=== PATIENT | male | born 1975 | race Caucasian/White ===

== ENCOUNTER → 2016-08-19 | Outpatient (CLI) | payer BC ==
[2016-03-30 00:20] VITALS: BP 160/105
[~2016-08-19] MED LIST: IOHEXOL 300 MG/ML 75 ML VIAL. IV ONE
--- NOTE | 2016-08-20 09:24 | RAD ---
Indication abnormal chest x-ray at the office. History of smoking. Contrast imaging through the chest was performed. Approximately 75 cc of Omnipaque 300 was administered intravenously. No prior imaging is available. Images were reformatted in the coronal and sagittal planes. Imaging through the upper abdomen shows no acute or definite significant finding. There are probably small bilateral renal calculi. The thoracic aorta appears unremarkable. There is no significant hilar or mediastinal adenopathy. There are groundglass opacities in the right upper lobe. There are infiltrates in the right lower lobe. The findings (groundglass opacities and infiltrates) are most compatible with an infectious process. Clinical correlation and follow-up advised. A dominant soft tissue mass in either lung is not seen. IMPRESSION: Findings, as outlined above, involving the right lung probably reflecting infection. A dominant soft tissue mass is not seen. Clinical correlation and follow-up imaging advised. PQRS Compliance Statement: One or more of the following individualized dose reduction techniques were utilized for this examination: 1. Automated exposure control 2. Adjustment of the mA and/or kV according to patient size 3. Use of iterative reconstruction technique
== END | disposition home or self-care (01) ==
LOC: CT 12:47
PROVIDERS: ATTEND Nurse Practitioner Family
DX: J44.9 Chronic obstructive pulmonary disease, unspecified (principal); I10 Essential (primary) hypertension; R93.8 Abnormal findings on diagnostic imaging of other specified body structures; F17.210 Nicotine dependence, cigarettes, uncomplicated
CPT/HCPCS: 71260; Q9967

== ENCOUNTER 2016-12-27 23:48 | Emergency (ER) | payer BC ==
[~2016-12-27] VITALS: Ht 185.4 cm; Wt 109.1 kg
[2016-12-27 23:50] VITALS: BP 148/95
[2016-12-28] MEDS ORDERED: IV NORMAL SALINE 1,000ML 1,000 ML IV SCH (00:08)
[2016-12-28] MEDS ORDERED: methylPREDNISolone SOD SUCC PF 125 MG/2 ML VIAL. IV ONE (00:15)
[2016-12-28] MEDS ORDERED: FAMOTIDINE 20 MG/2 ML VIAL IVP ONE (00:15)
[2016-12-28] MEDS ORDERED: diphenhydrAMINE 50 MG/ML VIAL IV ONE (00:15)
[2016-12-28] MEDS ORDERED: SULF1TAB24 PO (00:24)
[2016-12-28] MEDS ORDERED: SMZ/TMP 800/160MG TABLET. PO ONE ×2 (00:27→00:30)
--- NOTE | 2016-12-28 00:27 | PHYS DOC ---
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 Patient states that yesterday he noticed a tender area in his right axilla. Over time tenderness has increased on the redness has spread patient assumed he was bitten by an insect and came for evaluation. 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 He denies fever chills sweats or myalgias he has seen no ticks and his tetanus is up-to-date. No pre-arrival treatment patient is normally healthy. Timing/Duration: 24 hours Severity: mild Modifying Factors: worse with movement Associated Symptoms: rash Allergies: Coded Allergies: No Known Drug Allergies (Unverified , 08/19/16) Past Medical History Medical History: hypertension Surgical History: tonsillectomy Social History Smoker: less than 1 pack/day Alcohol: occasionally Drugs: none Review of Systems Constitutional: denies chills, denies diaphoresis, denies fever Respiratory: denies cough, denies shortness of breath Cardiovascular: denies chest pain, denies palpitations Gastrointestinal: denies nausea, denies vomiting Musculoskeletal: denies back pain, denies joint swelling, denies neck pain Skin: see HPI Psychiatric/Neurological: denies headache, denies numbness, denies paresthesia Physical Exam General Appearance: WD/WN, no apparent distress Eyes: bilateral eye normal inspection, bilateral eye PERRL, bilateral eye EOMI Ear, Nose, Throat: hearing grossly normal, normal ENT inspection Neck: full range of motion, supple Respiratory: normal breath sounds, no respiratory distress Cardiovascular: normal peripheral pulses, regular rate, rhythm Back: no CVA tenderness, no vertebral tenderness Extremities: normal range of motion, normal inspection Neurologic/Psychiatric: no motor/sensory deficits, alert, normal mood/affect, oriented x 3 Skin: warm/dry (4 cm area of induration and erythema the right axilla a 0.5 cm hardened nodule, 3 tiny 0.3 cm satellite lesions inferiorly consistent with MRSA cellulitis. No fluctuance or skin breaks no discharge there is warm and tender) Departure Time of Disposition: 00:25 Disposition: 01 HOME, SELF-CARE Diagnosis: right axillary cellulitis (MRSA) Condition: GOOD Patient Instructions: MRSA Overview Additional Instructions: Stop/cut down smoking to complement wound healing. Warm compresses 4x/daily starting tomorrow. OTC tylenol/ibuprofen as needed. Rx: bactrim ds Follow up with your doctor in 5 days for recheck. Return to ED with new or changing symptoms. MARIIA GORMAN DO Dec 28, 2016 00:27
== END 2016-12-28 00:29 | disposition home or self-care (01) ==
LOC: ER 23:48
DX: L03.111 Cellulitis of right axilla (principal); I10 Essential (primary) hypertension; F17.200 Nicotine dependence, unspecified, uncomplicated; W57.XXXA Bitten or stung by nonvenomous insect and other nonvenomous arthropods, initial encounter; Y93.89 Activity, other specified; Y99.8 Other external cause status; Y92.89 Other specified places as the place of occurrence of the external cause
CPT/HCPCS: 99283

== ENCOUNTER 2018-01-19 17:07 | Emergency (ER) | payer OTHER, BC ==
[~2018-01-19] VITALS: Ht 185.4 cm; Wt 104.3 kg
[~2018-01-19 17:07] MED LIST changes: -IOHEXOL 300 MG/ML 75 ML VIAL. IV ONE; +SULF1TAB24 PO
[2018-01-19] MEDS: methylPREDNISolone SOD SUCC PF 125 MG/2 ML VIAL. IV ONE (17:41)
[2018-01-19] MEDS: diphenhydrAMINE 50 MG/ML VIAL IVP ONE (17:42)
[2018-01-19] MEDS: IV NORMAL SALINE 1,000ML 1,000 ML IV ONE (17:42)
--- NOTE | 2018-01-19 17:43 | PHYS DOC ---
Past History Past Medical History: Hypertension Past Surgical History: Tonsillectomy, Other Alcohol Use: Rarely Drug Use: None Adult General Chief Complaint Chief Complaint: INSECT BITE HPI HPI 42-year-old male presents via EMS after bee sting. The patient knows that she is allergic to bees. He has had reactions that include shortness of breath, throat swelling and rash. His last bee sting was couple of decades ago. He does not carry an EpiPen. The sting was on the left shoulder. This occurred about 15 minutes prior to arrival. The patient is not having any difficulty breathing at this time. He has some mild discomfort at the sting site on his left shoulder. Until his, he was feeling well and had no complaints. He believes he was only stung once. Review of Systems Review of Systems Constitutional: Denies fever or chills [] Eyes: Denies change in visual acuity, redness, or eye pain [] HENT: Denies nasal congestion or sore throat [] Respiratory: Denies cough or shortness of breath [] Cardiovascular: No additional information not addressed in HPI [] GI: Denies abdominal pain, nausea, vomiting, bloody stools or diarrhea [] : Denies dysuria or hematuria [] Musculoskeletal: Denies back pain or joint pain [] Integument: Bee sting[] Neurologic: Denies headache, focal weakness or sensory changes [] Endocrine: Denies polyuria or polydipsia [] All other systems were reviewed and found to be within normal limits, except as documented in this note. Current Medications Current Medications Current Medications Medications (Trade) Dose Ordered Sig/Malathi Start Time Stop Time Status Last Admin Dose Admin Diphenhydramine HCl (Benadryl) 25 mg 1X ONCE 01/19/18 17:30 01/19/18 17:31 UNV Methylprednisolone Sodium Succinate (SOLU-Medrol 125MG VIAL) 125 mg 1X ONCE 01/19/18 17:30 01/19/18 17:31 UNV Sodium Chloride 1,000 ml @ 1,000 mls/hr 1X ONCE 01/19/18 17:30 01/19/18 18:29 UNV Allergies Allergies Allergies Coded Allergies Type Severity Reaction Last Updated Verified No Known Drug Allergies 08/19/16 No Physical Exam Physical Exam Constitutional: Well developed, well nourished, no acute distress, non-toxic appearance. [] HENT: Normocephalic, atraumatic, bilateral external ears normal, oropharynx moist, no oral exudates, nose normal. [] Eyes: PERRLA, EOMI, conjunctiva normal, no discharge. [] Neck: Normal range of motion, no tenderness, supple, no stridor. [] Cardiovascular:Heart rate regular rhythm, no murmur [] Lungs & Thorax: Bilateral breath sounds clear to auscultation [] Abdomen: Bowel sounds normal, soft, no tenderness, no masses, no pulsatile masses. [] Skin: Erythematous area of the left superior shoulder consistent with insect sting. [] Back: No tenderness, no CVA tenderness. [] Extremities: No tenderness, no cyanosis, no clubbing, ROM intact, no edema. [] Neurologic: Alert and oriented X 3, normal motor function, normal sensory function, no focal deficits noted. [] Psychologic: Affect normal, judgement normal, mood normal. [] Current Patient Data Vital Signs Vital Signs Date Time Temp Pulse Resp B/P (MAP) Pulse Ox O2 Delivery O2 Flow Rate FiO2 01/19/18 17:18 98.6 92 18 97 Room Air EKG EKG [] Radiology/Procedures Radiology/Procedures [] Course & Med Decision Making Course & Med Decision Making Pertinent Labs and Imaging studies reviewed. (See chart for details) Patient's labs are remarkable only for a slightly elevated white count of 13.6. The rest are unremarkable. The patient was given 1 L normal saline, 25 mg of Benadryl IV, and 125 mg of Solu-Medrol IV. We will watch him for a period of time to see if further allergic reaction develops. I am signing out this patient to Dr. Radford at 1815 for further observation and final disposition. [Patient remains a symptomatically emergency department. Discharge prescriptions for prednisone and Pepcid and EpiPen is provided. Return cautions reviewed. Patient verbalizes understanding agreement discharge instructions prior to departure.] Dragon Disclaimer Dragon Disclaimer This electronic medical record was generated, in whole or in part, using a voice recognition dictation system. Departure Departure: Impression: Primary Impression: Bee sting allergy Disposition: HOME, SELF-CARE Condition: GOOD Referrals: PCP,NO (PCP) Scripts Epinephrine (EPIPEN 2-ADRIAN) 0.3 Mg/0.3 Ml Auto.injct 0.3 MG IJ 1X PRN PRN for SHORTNESS OF BREATH for 1 Day, #1 SYR 0 Refills Prov: VERÓNICA RADFORD DO 01/19/18 Famotidine (PEPCID) 20 Mg Tablet 1 TAB PO BID, #10 TAB 0 Refills Prov: VERÓNICA RADFORD DO 01/19/18 Prednisone (PREDNISONE) 50 Mg Tablet 1 TAB PO DAILY, #5 TAB Prov: VERÓNICA RADFORD DO 01/19/18 VERÓNICA DAVID DO Jan 19, 2018 17:43 VERÓNICA RADFORD DO Jan 19, 2018 23:25
[2018-01-19 17:47] LABS: BASO # 0.2 x10^3/uL (0.0-0.2); BASO % 1 % (0-3); EOS # 0.1 x10^3/uL (0.0-0.7); EOS % 1 % (0-3); HEMATOCRIT 44.8 % (39.0-53.0); HEMOGLOBIN 15.6 g/dL (13.0-17.5); LYMPH # 2.3 x10^3/uL (1.0-4.8); LYMPH % 17 % (24-48); MEAN CORPUSCULAR HEMOGLOBIN 32 pg (25-35); MEAN CORPUSCULAR HGB CONC 35 g/dL (31-37); MEAN CORPUSCULAR VOLUME 91 fL (79-100); MONO % 7 % (0-9); NEUT % 74 % (31-73); PLATELET COUNT 408 x10^3/uL (140-400); RED BLOOD COUNT 4.94 x10^6/uL (4.30-5.70); RED CELL DISTRIBUTION WIDTH 14.3 % (11.5-14.5); WHITE BLOOD COUNT 13.6 x10^3/uL (4.0-11.0)
[2018-01-19 17:59] LABS: ALBUMIN 3.7 g/dL (3.4-5.0); ALBUMIN/GLOBULIN RATIO 1.1 (1.0-1.7); CALCIUM 9.3 mg/dL (8.5-10.1); GFR 82.3; POTASSIUM 3.7 mmol/L (3.5-5.1); TOTAL BILIRUBIN 0.3 mg/dL (0.2-1.0)
[2018-01-19 18:42] VITALS: BP 143/98
[2018-01-19] MEDS ORDERED: PRED50TA PO (19:09)
[2018-01-19] MEDS ORDERED: FAMO-63 PO (19:09)
[2018-01-19] MEDS ORDERED: EPIN0.3A4 IJ (19:09)
== END 2018-01-19 19:23 | disposition home or self-care (01) ==
LOC: ER 17:07
DX: T63.441A Toxic effect of venom of bees, accidental (unintentional), initial encounter (principal); I10 Essential (primary) hypertension; Y92.89 Other specified places as the place of occurrence of the external cause
CPT/HCPCS: 36415; 80053; 85025; 96374; 96375; 99284; J1200; J2930; J7030

== ENCOUNTER 2018-06-25 16:55 | Emergency (ER) | payer BC, OTHER ==
[~2018-06-25] VITALS: Ht 185.4 cm; Wt 90.7 kg
[~2018-06-25 16:55] MED LIST changes: +EPIN0.3A4 IJ; +FAMO-63 PO; +PRED50TA PO
[2018-06-25] MEDS ORDERED: ASPIRIN 81 MG TAB.CHEW ONE (17:15)
[2018-06-25] MEDS ORDERED: ASPIRIN 81 MG TAB.CHEW PO ONE (17:30)
--- NOTE | 2018-06-25 17:34 | RAD ---
Chest radiograph 06/25/2018 4:09 PM INDICATION: Chest pain with left side arm tingling COMPARISON: CT Chest August 19, 2016 TECHNIQUE: Portable upright frontal view of the chest is provided. FINDINGS: The cardiomediastinal silhouette is within normal limits. There are no pleural effusions. There is no pulmonary vascular congestion. There is no pneumothorax. The lungs are clear. No significant osseous abnormality is identified. IMPRESSION: No acute cardiopulmonary process. Electronically signed by: Tosha Bourgeois MD (06/25/2018 5:31 PM) [facility]
--- NOTE | 2018-06-25 17:37 | PHYS DOC ---
Past History Past Medical History: Asthma, Hypertension Past Surgical History: Other Additional Past Surgical Histo: finger surgery Smoking: Cigarettes Alcohol Use: None Drug Use: None Adult General Chief Complaint Chief Complaint: CHEST PAIN HPI HPI 42-year-old male presenting the emergency department today with intermittent chest pain over the past 3 months. He describes it about 2 times per week. It is a throbbing pain in the chest that is nonradiating. It is worse at night. It is nonradiating. He denies nausea or diaphoresis. Currently he does not have chest pain. He was sent here from clinic. He has not taken anything for his pain. He denies shortness of breath. He denies unilateral leg swelling hemoptysis or history of dvt/pe. Review of systems is negative for fevers chills headache neck stiffness confusion. All other review of systems is negative unless otherwise noted in history of present illness. ED course: 42-year-old male presenting the emergency department today with intermittent chest pain over the past few months. Currently he has no pain. EKG obtained and reviewed by myself shows sinus rhythm with a regular rate. ST segments show mild repolarization in lead V2 and V3. Nonspecific T-wave inversion and flattening in lead 3 and aVF. Otherwise chest x-ray obtained along with blood work. Chest x-ray is unremarkable. Patient was seen just prior to sign out at 6 PM. Plan is to admit the patient to the hospital. I've already had an initial discussion with this patient and he like to sign AGAINST MEDICAL ADVICE. He is willing to wait for the blood test. Patient signed out at 6 PM. HEART SCORE History Slightly suspicious 0 Moderately suspicious +1 Highly suspicious +2 EKG 1 point: No ST depression but LBBB, LVH, repolarization changes (ex: digoxin); 2 points: ST depression/elevation not due to LBBB, LVH, or digoxin Normal 0 Non-specific repolarization disturbance +[address] depression +2 Age <45 0 45-65 +1 65 +2 Risk factors Risk factors: HTN, hypercholesterolemia, DM, obesity (BMI >30 kg/m), smoking (current, or smoking cessation 3 mo), positive family history (parent or sibling with CVD before age 65); atherosclerotic disease: prior MD, PCI/CABG, CVA/TIA, or peripheral arterial disease No known risk factors 0 1-2 risk factors +1 3 risk factors or history of atherosclerotic disease +2 Initial troponin Use local assays and corresponding cutoffs NOT BACK YET Total 4 points Review of Systems Review of Systems SEE ABOVE. Current Medications Current Medications Current Medications Medications (Trade) Dose Ordered Sig/Malathi Start Time Stop Time Status Last Admin Dose Admin Aspirin (Children'S Aspirin) 81 mg STK-MED ONCE 06/25/18 17:15 06/25/18 17:16 DC Allergies Allergies Allergies Coded Allergies Type Severity Reaction Last Updated Verified Penicillins Allergy Unknown 06/25/18 Yes Physical Exam Physical Exam SEE ABOVE Constitutional: Well developed, well nourished, no acute distress, non-toxic appearance. Pt is comfortable. HENT: Normocephalic, atraumatic, bilateral external ears normal, oropharynx moist, no oral exudates, nose normal. [] Eyes: PERRLA, EOMI, conjunctiva normal, no discharge. [] Neck: Normal range of motion, no tenderness, supple, no stridor. [] Cardiovascular:Heart rate regular rhythm, no murmur [] Lungs & Thorax: Bilateral breath sounds clear to auscultation [] Abdomen: Bowel sounds normal, soft, no tenderness, no masses, no pulsatile masses. [] Skin: Warm, dry, no erythema, no rash. no diaphoresis. Back: No tenderness, no CVA tenderness. [] Extremities: No tenderness, no cyanosis, no clubbing, ROM intact, no edema. [] Neurologic: Alert and oriented X 3, normal motor function, normal sensory function, no focal deficits noted. [] Psychologic: Affect normal, judgement normal, mood normal. [] Current Patient Data Vital Signs Vital Signs Date Time Temp Pulse Resp B/P (MAP) Pulse Ox O2 Delivery O2 Flow Rate FiO2 06/25/18 17:09 98.1 73 18 100 Room Air EKG EKG [] Radiology/Procedures Radiology/Procedures [] Course & Med Decision Making Course & Med Decision Making Pertinent Labs and Imaging studies reviewed. (See chart for details) [] Dragon Disclaimer Dragon Disclaimer This electronic medical record was generated, in whole or in part, using a voice recognition dictation system. Departure Departure: Impression: Primary Impression: Chest pain Referrals: PCP,NO (PCP) KENROY SALINAS MD Jun 25, 2018 17:37
[2018-06-25 17:58] LABS: BASO # 0.1 x10^3/uL (0.0-0.2); BASO % 1 % (0-3); EOS # 0.1 x10^3/uL (0.0-0.7); EOS % 1 % (0-3); HEMATOCRIT 46.2 % (39.0-53.0); HEMOGLOBIN 15.7 g/dL (13.0-17.5); LYMPH # 1.9 x10^3/uL (1.0-4.8); LYMPH % 21 % (24-48); MEAN CORPUSCULAR HEMOGLOBIN 31 pg (25-35); MEAN CORPUSCULAR HGB CONC 34 g/dL (31-37); MEAN CORPUSCULAR VOLUME 91 fL (79-100); MONO # 0.5 x10^3/uL (0.0-1.1); MONO % 6 % (0-9); NEUT # 6.2 x10^3uL (1.8-7.7); NEUT % 71 % (31-73); PLATELET COUNT 399 x10^3/uL (140-400); RED BLOOD COUNT 5.07 x10^6/uL (4.30-5.70); RED CELL DISTRIBUTION WIDTH 14.4 % (11.5-14.5); WHITE BLOOD COUNT 8.8 x10^3/uL (4.0-11.0)
[2018-06-25 18:03] LABS: DIRECT BILIRUBIN 0.1 mg/dL (0.0-0.2); GFR 82.3; POTASSIUM 3.9 mmol/L (3.5-5.1); TOTAL BILIRUBIN 0.2 mg/dL (0.2-1.0); TOTAL PROTEIN 7.4 g/dL (6.4-8.2)
[2018-06-25] MEDS ORDERED: HYDR12.58 PO (18:34)
[2018-06-25] MEDS ORDERED: cloNIDine TTS-2 1 PATCH PATCH TD ONE (18:45)
[2018-06-25 18:47] VITALS: BP 146/80
--- NOTE | 2018-06-26 17:49 | EKG ---
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
== END 2018-06-25 18:50 | disposition home or self-care (01) ==
LOC: ER 16:55
DX: R07.89 Other chest pain (principal); I10 Essential (primary) hypertension; J45.909 Unspecified asthma, uncomplicated; F17.210 Nicotine dependence, cigarettes, uncomplicated; Z88.0 Allergy status to penicillin
CPT/HCPCS: 36415; 71045; 80048; 80076; 83690; 84484; 85025; 99284

== ENCOUNTER 2020-02-15 19:37 | Emergency (ER) | payer BC, OTHER ==
[~2020-02-15] VITALS: Ht 185.4 cm; Wt 108.0 kg
[~2020-02-15 19:37] MED LIST changes: +HYDR12.58 PO
[2020-02-15 19:40] VITALS: BP 152/102
[2020-02-15] MEDS ORDERED: ACETAMINOPHEN 500 MG TABLET PO ONE (21:00)
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
[2020-02-15] MEDS ORDERED: NEOMY/BACITR/POLYMYXIN OINT PACKET. TP ONE (21:15)
[2020-02-15] MEDS ORDERED: IBUP-1673 PO (21:23)
[2020-02-15] MEDS ORDERED: CYCL-331 PO (21:23)
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
== END 2020-02-15 21:30 | disposition home or self-care (01) ==
LOC: ER 19:37
DX: S00.03XA Contusion of scalp, initial encounter (principal); J45.909 Unspecified asthma, uncomplicated; I10 Essential (primary) hypertension; F17.210 Nicotine dependence, cigarettes, uncomplicated; Z88.0 Allergy status to penicillin; Y08.89XA Assault by other specified means, initial encounter; Y93.89 Activity, other specified; Y92.89 Other specified places as the place of occurrence of the external cause; Y99.8 Other external cause status
CPT/HCPCS: 70450; 99284-25